=== PATIENT | male | born 1955 | race Two or more races ===

== ENCOUNTER 2025-10-11 10:29 | Emergency (ER) | payer OTHER ==
[~2025-10-11] VITALS: Ht 177.8 cm; Wt 106.6 kg
[2025-10-11] MEDS ORDERED: CARVEDILOL ER40 MG PO (12:15)
[2025-10-11] MEDS ORDERED: SIMVASTATIN5 MG PO (12:15)
[2025-10-11] MEDS ORDERED: METFORMIN HCL1000 M2 PO (12:15)
[2025-10-11 13:36] LABS: BASO % 0.6 % (0.1-1.2); EOS # 0.32 (0.04-0.54); EOS % 3.9 % (0.7-7.0); LYMPH # 1.79 (1.18-3.74); LYMPH % 21.7 % (19.3-53.1); MEAN PLATELET VOLUME 9.80 fl (9.4-12.4); MONO # 0.74 (0.24-0.82); MONO % 9.0 % (4.7-12.5); NEUT # 5.20 (1.56-6.13); NEUT % 62.9 % (34.0-71.1); RED CELL DISTRIBUTION WIDTH 16.2 % (11.6-14.4)
[2025-10-11 14:00] LABS: ERYTHROCYTE SEDIMENTATION RATE 8 mm/hr (0-20)
[2025-10-11 15:23] LABS: URINE APPEARANCE Clear; URINE BILIRRUBIN Negative (NEGATIVE); URINE BLOOD Negative; URINE COLOR Yellow; URINE KETONE Trace (NEGATIVE); URINE LEUKOCYTE Negative; URINE NITRATE Negative; URINE PROTEIN Negative (NEGATIVE); URINE UROBILINOGEN 1.0 E.U./dl
[2025-10-11 15:28] LABS: URINE RBC 2.7 uL (0.0-20.8)
[2025-10-11 15:31] LABS: TYPE CELLS SQUAMOUS; URINE BACTERIA 2.3 uL (0.0-1933); URINE CAST 0.43 uL (0.0-1.40); URINE EPITHELIAL CELLS 1.2 uL (0.0-38.8); URINE GLUCOSE 500 MG/DL (NEGATIVE); URINE WBC 1.3 uL (0.0-23.2)
[2025-10-11 15:36] LABS: ALT/SGPT 25.0 U/L (12-78); AST/SGOT 14.0 U/L (15-37); BILIRUBIN TOTAL 0.48 mg/dL (0.3-1.2); BUN CREA RATIO 23.0 (7.0-25.0); CREATININE SERUM 1.58 mg/dL (0.70-1.30); GFR 43.57; GLOBULINA 3.1 G/DL (2.4-3.5); GLUCOSE FASTING 176.0 mg/dL (65-100); OSMOLALITY SERUM 290.0 MOSM/KG (275-295)
[2025-10-11] MEDS ORDERED: 0.9 % SODIUM CHLORIDE 1,000 ML IV STA (16:32)
[2025-10-11] MEDS ORDERED: ORPHENADRINE CITRATE 30 MG/ML AMPUL IM STA (16:33)
[2025-10-11] MEDS ORDERED: DEXAMETHASONE SODIUM PHOSPHATE 4 MG/ML VIAL IM STA (16:33)
[2025-10-11] MEDS ORDERED: MEDROLPACK PO (16:44)
[2025-10-11] MEDS ORDERED: NORFLEX100MG PO (16:44)
[2025-10-11] MEDS ORDERED: ORPHENADRINE CITRATE 30 MG/ML AMPUL ONE (17:00)
[2025-10-11] MEDS ORDERED: DEXAMETHASONE SODIUM PHOSPHATE 4 MG/ML VIAL ONE (17:00)
== END 2025-10-11 18:20 | disposition home or self-care (01) ==
LOC: ER 10:29
PROVIDERS: Physician Assistant Medical
DX: M54.59 Other low back pain (principal); G89.29 Other chronic pain; E11.9 Type 2 diabetes mellitus without complications; Z79.84 Long term (current) use of oral hypoglycemic drugs
CPT/HCPCS: 36415; 73030; 74270; 96365; 96372; 99283; J1100; J2360; J7030

== ENCOUNTER 2025-11-20 14:45 | Emergency (ER) | payer OTHER ==
[~2025-11-20] VITALS: Ht 180.3 cm; Wt 108.0 kg
[~2025-11-20 14:45] MED LIST: CARVEDILOL ER40 MG PO; MEDROLPACK PO; METFORMIN HCL1000 M2 PO; NORFLEX100MG PO; SIMVASTATIN5 MG PO
[2025-11-20 15:13] VITALS: BP 125/72; O2SAT 96
[2025-11-20] MEDS ORDERED: LANTUS U-100 INSULIN (15:26)
[2025-11-20] MEDS ORDERED: GALANTAMINE HBR8 MG PO (15:27)
[2025-11-20] MEDS ORDERED: FOLIC ACID0.8 M1 PO (15:28)
[2025-11-20] MEDS ORDERED: LEVOFLOXACIN500 MG PO (15:29)
[2025-11-20] MEDS ORDERED: METHYLPREDNISOLO4 M1 PO (15:29)
[2025-11-20] MEDS ORDERED: DICLOFENAC SODI50 MG PO (15:30)
[2025-11-20] MEDS ORDERED: CANDESARTAN CILE4 MG PO (15:31)
[2025-11-20] MEDS ORDERED: GALANTAMINE HBR24 MG (15:31)
[2025-11-20] MEDS ORDERED: MUPIROCIN22 GM TP (15:32)
[2025-11-20] MEDS ORDERED: FOLIC ACID1 MG PO (15:32)
[2025-11-20] MEDS ORDERED: INSULIN SYRING1 EA27 (15:33)
[2025-11-20] MEDS ORDERED: ST. JOSEPH ASPI81 M2 PO (15:33)
[2025-11-20] MEDS ORDERED: TESTOSTERO200 MG/1 M IM (15:34)
[2025-11-20] MEDS ORDERED: CARBIDOPA-LEVO1 EA13 PO (15:34)
[2025-11-20] MEDS ORDERED: NORVASC2.5 MG PO (15:35)
[2025-11-20] MEDS ORDERED: NABUMETONE500 MG PO (15:35)
[2025-11-20] MEDS ORDERED: 0.9 % SODIUM CHLORIDE 1,000 ML IV ONE (16:00)
[2025-11-20] MEDS ORDERED: FAMOTIDINE/PF 20 MG/2 ML VIAL IV ONE (16:00)
[2025-11-20] MEDS ORDERED: FAMOTIDINE/PF 20 MG/2 ML VIAL ONE (17:23)
[2025-11-20 17:29] LABS: BASO % 0.5 % (0.1-1.2); EOS # 0.21 (0.04-0.54); EOS % 2.6 % (0.7-7.0); LYMPH # 1.52 (1.18-3.74); LYMPH % 19.0 % (19.3-53.1); MEAN PLATELET VOLUME 10.00 fl (9.4-12.4); MONO # 0.67 (0.24-0.82); MONO % 8.4 % (4.7-12.5); NEUT # 5.50 (1.56-6.13); NEUT % 68.6 % (34.0-71.1); RED CELL DISTRIBUTION WIDTH 14.9 % (11.6-14.4)
[2025-11-20 17:47] LABS: INR 1.0
[2025-11-20 18:04] LABS: COVID-19 AG NEGATIVE (NEGATIVE)
[2025-11-20 18:10] LABS: ALT/SGPT 22.0 U/L (12-78); AST/SGOT 14.0 U/L (15-37); BILIRUBIN TOTAL 0.56 mg/dL (0.3-1.2); BUN CREA RATIO 20.0 (7.0-25.0); CREATININE SERUM 1.53 mg/dL (0.70-1.30); GFR 45.22; GLOBULINA 3.4 G/DL (2.4-3.5); GLUCOSE FASTING 177.0 mg/dL (65-100); OSMOLALITY SERUM 294.0 MOSM/KG (275-295); PHOSPHOKINASE CREATININE 183.0 U/L (39-308)
[2025-11-20] MEDS ORDERED: PEPCID AC20 MG PO (18:44)
[2025-11-20] MEDS ORDERED: KEPPRA500 MG PO (18:44)
== END 2025-11-20 20:01 | disposition home or self-care (01) ==
LOC: ER 14:46
PROVIDERS: General Practice
DX: G40.89 Other seizures (principal); Z91.041 Radiographic dye allergy status; I10 Essential (primary) hypertension; Z20.822 Contact with and (suspected) exposure to COVID-19; E11.9 Type 2 diabetes mellitus without complications; Z79.4 Long term (current) use of insulin; R51.9 Headache, unspecified